=== PATIENT | female | born 1995 | race African-American/Black ===

== ENCOUNTER 2018-10-20 21:32 | Emergency (ER) | payer OTHER ==
[~2018-10-20] VITALS: Ht 170.2 cm; Wt 113.4 kg
--- NOTE | 2018-10-20 22:14 | PHYS DOC ---
Past Medical History Past Medical History: No Pertinent History Past Surgical History: No Surgical History Alcohol Use: None Drug Use: None Adult General Chief Complaint Chief Complaint: HEADACHE HPI HPI Patient is a 23 year old female who presents with went to on 10/16 mean of neck pain and headache and fever and states they gave her a muscle relaxer and some ibuprofen for home. She states on 10/17 she did not feel any better so she returned and was admitted on 10/18 after having a lumbar puncture to assess spinal fluid for meningitis. Patient was admitted and was given IV vancomycin and another antibiotic she can't remember. She states that soon they told her that she did not have meningitis she was discharged home on 10/19 with a continued headache, vomiting. Patient is sensitive to light. States that she sent her home with sumatriptan. Patient states today she is taken the sumatriptan, Excedrin, hydrochlorothiazide, ibuprofen, Tylenol. Patient rates her pain a 10 out of 10 and feels like from the top of the mid of her head to the front of her head is being squeezed. Review of Systems Review of Systems Constitutional: Denies fever or chills [] Eyes: Denies change in visual acuity, redness, or eye pain. Photophobia. [] HENT: Denies nasal congestion or sore throat [] Respiratory: Denies cough or shortness of breath [] Cardiovascular: No additional information not addressed in HPI [] GI: Denies abdominal pain. nausea, vomiting, denies bloody stools or diarrhea [] : Denies dysuria or hematuria [] Musculoskeletal: Slight neck stiffness. Denies back pain or joint pain [] Integument: Denies rash or skin lesions [] Neurologic: headache, denies focal weakness or sensory changes [] All other systems were reviewed and found to be within normal limits, except as documented in this note. Current Medications Current Medications Current Medications Medications (Trade) Dose Ordered Sig/Adwoa Start Time Stop Time Status Last Admin Dose Admin Diphenhydramine HCl (Benadryl) 50 mg STK-MED ONCE 10/20/18 22:38 10/20/18 22:40 DC Fentanyl Citrate (Fentanyl 2ml Vial) 50 mcg 1X ONCE 10/20/18 23:30 10/20/18 23:31 DC 10/20/18 23:53 50 MCG Methylprednisolone Sodium Succinate (SOLU-Medrol 125MG VIAL) 125 mg 1X ONCE 10/21/18 03:00 10/21/18 03:01 DC 10/21/18 03:00 125 MG Prochlorperazine Edisylate (Compazine) 10 mg 1X ONCE 10/20/18 22:30 10/20/18 22:31 DC 10/20/18 22:47 10 MG Sodium Chloride 1,000 ml @ 1,000 mls/hr 1X ONCE 10/20/18 22:30 10/20/18 23:29 DC 10/20/18 23:08 1,000 MLS/HR Allergies Allergies Allergies Coded Allergies Type Severity Reaction Last Updated Verified No Known Drug Allergies 08/09/14 No Physical Exam Physical Exam Constitutional: Well developed, well nourished, no acute distress, non-toxic appearance. [] HENT: Normocephalic, atraumatic, bilateral external ears normal, oropharynx moist, no oral exudates, nose normal. [] Eyes: Photophobia. PERRLA, EOMI, conjunctiva normal, no discharge. [] Neck: Slightly abnormal range of motion, no tenderness, supple, no stridor. [] Cardiovascular:Heart rate regular rhythm, no murmur [] Lungs & Thorax: Bilateral breath sounds clear to auscultation [] Abdomen: Bowel sounds normal, soft, no tenderness, no masses, no pulsatile masses. [] Skin: Warm, dry, no erythema, no rash. [] Back: No tenderness, no CVA tenderness. [] Extremities: No tenderness, no cyanosis, no clubbing, ROM intact, no edema. [] Neurologic: Alert and oriented X 3, normal motor function, normal sensory function, no focal deficits noted. [] Psychologic: Affect normal, judgement normal, mood normal. [] Current Patient Data Vital Signs Vital Signs Date Time Temp Pulse Resp B/P (MAP) Pulse Ox O2 Delivery O2 Flow Rate FiO2 10/21/18 03:03 100 18 10/21/18 01:30 98 10/20/18 23:53 Room Air 10/20/18 21:45 98.8 173/100 (124) 98.8 Lab Values Laboratory Tests Test 10/20/18 22:35 10/21/18 02:56 White Blood Count 11.2 x10^3/uL (4.0-11.0) H Red Blood Count 4.76 x10^6/uL (3.50-5.40) Hemoglobin 13.8 g/dL (12.0-15.5) Hematocrit 40.7 % (36.0-47.0) Mean Corpuscular Volume 86 fL (79-100) Mean Corpuscular Hemoglobin 29 pg (25-35) Mean Corpuscular Hemoglobin Concent 34 g/dL (31-37) Red Cell Distribution Width 13.9 % (11.5-14.5) Platelet Count 195 x10^3/uL (140-400) Neutrophils (%) (Auto) 23 % (31-73) L Lymphocytes (%) (Auto) 64 % (24-48) H Monocytes (%) (Auto) 10 % (0-9) H Eosinophils (%) (Auto) 2 % (0-3) Basophils (%) (Auto) 1 % (0-3) Neutrophils # (Auto) 2.5 x10^3uL (1.8-7.7) Lymphocytes # (Auto) 7.1 x10^3/uL (1.0-4.8) H Monocytes # (Auto) 1.2 x10^3/uL (0.0-1.1) H Eosinophils # (Auto) 0.2 x10^3/uL (0.0-0.7) Basophils # (Auto) 0.2 x10^3/uL (0.0-0.2) Segmented Neutrophils % 17 % (35-66) L Band Neutrophils % 16 % (0-9) H Lymphocytes % 32 % (24-48) Atypical Lymphocytes % (Manual) 30 % (0-0) H Monocytes % 1 % (0-10) Eosinophils % 3 % (0-5) Basophils % 1 % (0-3) Toxic Vacuolation Present Platelet Estimate Adequate (ADEQUATE) Sodium Level 138 mmol/L (136-145) Potassium Level 4.0 mmol/L (3.5-5.1) Chloride Level 102 mmol/L (98-107) Carbon Dioxide Level 28 mmol/L (21-32) Anion Gap 8 (6-14) Blood Urea Nitrogen 6 mg/dL (7-20) L Creatinine 0.9 mg/dL (0.6-1.0) Estimated GFR (Cockcroft-Gault) 93.1 Glucose Level 113 mg/dL (70-99) H Calcium Level 9.4 mg/dL (8.5-10.1) Heterophil Agglutinins Negative (NEGATIVE) POC Urine HCG, Qualitative Hcg negative (Negative) Laboratory Tests 10/20/18 22:35 Laboratory Tests 10/20/18 22:35 EKG EKG [] Radiology/Procedures Radiology/Procedures [] Course & Med Decision Making Course & Med Decision Making Patient is a 23 year old female who presents with went to on 10/16 mean of neck pain and headache and fever and states they gave her a muscle relaxer and some ibuprofen for home. She states on 10/17 she did not feel any better so she returned and was admitted on 10/18 after having a lumbar puncture to assess spinal fluid for meningitis. Patient was admitted and was given IV vancomycin and another antibiotic she can't remember. She states that soon they told her that she did not have meningitis she was discharged home on 10/19 with a continued headache, vomiting. Patient is sensitive to light. States that she sent her home with sumatriptan. Patient states today she is taken the sumatriptan, Excedrin, hydrochlorothiazide, ibuprofen, Tylenol. Patient rates her pain a 10 out of 10 and feels like from the top of the mid of her head to the front of her head is being squeezed. Alert and oriented. Skin is pink warm and dry. Nontoxic appearing. Mucous membranes are moist. She has no rashes on her body. Patient states that the only time she has left is the headache and the nausea, vomiting, light sensitivity and even sometimes make the pain worse. Denies chest pain, shortness of air, fever, numbness or tingling. She is no extremity swelling. Afebrile. Patient states that she is able to move her neck with little pain. Patient does seem to have some neck stiffness as patient will at times move her whole body instead of turning her neck. There is no focal tenderness. Ambulatory with steady gait. Patient is given IV fluids, Compazine, Benadryl. We have sent for records from . I have consult with Dr. De Souza on this patient. 0390: Patient states the medications given have not helped her headache. She states her headache is still out of 10. She states that she is no longer nausea needed. Patient is still alert and oriented and is lying in bed with lights off. 2306: I have handed this patient over to Dr. De Souza. nevaeh: Received signout on this patient and went to check on her again 2 times in the emergency room once at 1 AM and once again at around 3 AM. Patient states that finally the fentanyl that was given did help her headache. It took us several hours but we finally did get the records from there is 50 pages of records in summary patient had a non-con head CT that was negative he tried an LP in the emergency room that was unsuccessful IR did do a lumbar puncture under fluoroscopy scopic guidance she did have elevated LFTs but her abdominal ultrasound was negative acute in the emergency room. Patient had a normal white blood cell count and negative urinalysis Tylenol level was less than 10 patient received ceftriaxone and acyclovir and Vanco while they were awaiting CSF results. Urine test was negative lactate was 1.0 influenza was negative. Notes from [facility] that at one point she told them over there that the only thing that helps her frequent headaches was the oxycodone that she was borrowing from her boyfriend. I reviewed the CSF studies in detail from the [facility] records. Patient had Monospot screen that was negative CSF apparently they only collected two tbues, 3 and 4 had 0 MLS tube to there was 10 white blood cells and 4600 red blood cells in tube 2 (she tells me that she was told it was a traumatic tap,) there was no xanthochromia there was a 57% lymphocyte predominance. The total protein was 43 the total glucose was 60. She had an RVP respiratory virus panel that was negative for all of the common viruses in addition Bordetella pertussis chlamydia pneumonia mycoplasma pneumonia were negative. Again the non-con head CT was negative acute that was done at the outside facility. Patient was ultimately discharged home after having improved symptoms. She does tell me that "I told him I need something besides Tylenol but they weren't listening to me". On reevaluation she says that her headache is actually resolved I reviewed with her the results from and actually talked with her about admitting her overnight elevated white blood cell count were observation and further treatment as indicated. Her CSF cultures so far been negative according to the current note review. She said she can't stay in the hospital she has to go home to be with her family. She did request a prescription for oxycodone so I did give her a small number of those and I did review with her that she very well may get a rebound headache and that this is only for short-term use. She understands. i asked her to come back for recurrent h/a or fever Doug Disclaimer Doug Disclaimer This electronic medical record was generated, in whole or in part, using a voice recognition dictation system. Departure Departure Impression: Primary Impression: Headache Disposition: 01 HOME, SELF-CARE Condition: STABLE Referrals: UNKNOWN PCP NAME (PCP) Scripts Oxycodone/Apap 5-325 (PERCOCET 5-325 MG TABLET ) 1 Each Tablet 1-2 EACH PO PRN TID PRN for PAIN, #10 TAB pain Prov: ERIK DE SOUZA MD 10/21/18 UZAIR FRANKLIN APRN Oct 20, 2018 22:14 ERIK DE SOUZA MD Oct 21, 2018 04:18
[2018-10-20] MEDS ORDERED: IV NORMAL SALINE 1000ML BAG 1,000 ML IV ONE (22:30)
[2018-10-20] MEDS ORDERED: PROCHLORPERAZINE 10 MG/2 ML VIAL. IV ONE (22:30)
[2018-10-20] MEDS ORDERED: diphenhydrAMINE 50 MG/ML VIAL IVP ONE (22:30)
[2018-10-20] MEDS ORDERED: diphenhydrAMINE 50 MG/ML VIAL ONE (22:38)
[2018-10-20 22:43] LABS: BASO # 0.2 x10^3/uL (0.0-0.2); BASO % 1 % (0-3); EOS # 0.2 x10^3/uL (0.0-0.7); EOS % 2 % (0-3); HEMATOCRIT 40.7 % (36.0-47.0); HEMOGLOBIN 13.8 g/dL (12.0-15.5); LYMPH # 7.1 x10^3/uL (1.0-4.8); LYMPH % 64 % (24-48); MEAN CORPUSCULAR HEMOGLOBIN 29 pg (25-35); MEAN CORPUSCULAR HGB CONC 34 g/dL (31-37); MEAN CORPUSCULAR VOLUME 86 fL (79-100); MONO # 1.2 x10^3/uL (0.0-1.1); MONO % 10 % (0-9); NEUT # 2.5 x10^3uL (1.8-7.7); NEUT % 23 % (31-73); PLATELET COUNT 195 x10^3/uL (140-400); RED BLOOD COUNT 4.76 x10^6/uL (3.50-5.40); RED CELL DISTRIBUTION WIDTH 13.9 % (11.5-14.5); WHITE BLOOD COUNT 11.2 x10^3/uL (4.0-11.0)
[2018-10-20 22:50] LABS: CALCIUM 9.4 mg/dL (8.5-10.1); CREATININE 0.9 mg/dL (0.6-1.0); GFR 93.1
[2018-10-20 23:15] LABS: % ATYL 30 % (0-0); % BANDS 16 % (0-9); % BASOS 1 % (0-3); % EOS 3 % (0-5); % LYMPHS 32 % (24-48); % MONOS 1 % (0-10); % SEGS 17 % (35-66)
[2018-10-20 23:16] LABS: PLT ESTIMATE ADEQUATE (ADEQUATE)
[2018-10-20 23:17] LABS: TOXIC VACUOLATION PRESENT
[2018-10-20] MEDS ORDERED: fentaNYL PF VIAL 100 MCG/2 ML VIAL IV ONE (23:30)
[2018-10-21 00:08] LABS: MONONUCLEOSIS PATIENT NEGATIVE (NEGATIVE)
[2018-10-21] MEDS ORDERED: OXYC1TAB15 PO (02:57)
[2018-10-21] MEDS ORDERED: methylPREDNISolone SOD SUCC PF 125 MG/2 ML VIAL. IV ONE (03:00)
[2018-10-21 03:03] VITALS: BP 175/78
== END 2018-10-21 03:30 | disposition home or self-care (01) ==
LOC: ER 21:32
DX: R51 Headache (principal); M54.2 Cervicalgia; R50.9 Fever, unspecified; M43.6 Torticollis
CPT/HCPCS: 36415; 80048; 81025; 85007; 85025; 86308; 96361; 96374; 96375; 99283; J0780; J1200; J2930; J3010; J7030

== ENCOUNTER 2019-09-11 16:33 | Emergency (ER) | payer OTHER ==
[~2019-09-11] VITALS: Ht 170.2 cm; Wt 127.0 kg
[~2019-09-11 16:33] MED LIST: OXYC1TAB15 PO
[2019-09-11] MEDS ORDERED: IV NORMAL SALINE 1000ML BAG 1,000 ML IV ONE (16:45)
[2019-09-11] MEDS ORDERED: diphenhydrAMINE 50 MG/ML VIAL IVP ONE (16:45)
[2019-09-11] MEDS ORDERED: PROCHLORPERAZINE 10 MG/2 ML VIAL. IV ONE (16:45)
--- NOTE | 2019-09-11 16:47 | PHYS DOC ---
Past Medical History Past Medical History: Hypertension Past Surgical History: No Surgical History Alcohol Use: None Drug Use: None Adult General Chief Complaint Chief Complaint: HEADACHE HPI HPI Patient is a 23 year old female who presents with migraine headache. Patient states she began having migraine headaches a year ago in September and she did go see a doctor they put her on medication. She states the medications didn't help. Patient states the headaches are away but yesterday his headache came back. Patient states she has light-sensitive and her frontal lobe is pounding. Patient states she is also nauseated. Patient's also has a history of hypertension and she is hypertensive in the emergency room. Patient states she has not been taking her blood pressure medications as she is supposed to. Patient states she's been under a lot of stress recently. Patient rates her pain a 10 out of 10. Review of Systems Review of Systems GI: Denies abdominal pain, +nausea, denies vomiting, bloody stools or diarrhea [] Neurologic: headache, denies focal weakness or sensory changes [] All other systems were reviewed and found to be within normal limits, except as documented in this note. Current Medications Current Medications Current Medications Medications (Trade) Dose Ordered Sig/Adwoa Start Time Stop Time Status Last Admin Dose Admin Diphenhydramine HCl (Benadryl) 25 mg 1X ONCE 09/11/19 16:45 09/11/19 16:46 DC 09/11/19 16:59 25 MG Prochlorperazine Edisylate (Compazine) 10 mg 1X ONCE 09/11/19 16:45 09/11/19 16:46 DC 09/11/19 17:01 10 MG Sodium Chloride 1,000 ml @ 1,000 mls/hr 1X ONCE 09/11/19 16:45 09/11/19 17:44 DC 09/11/19 16:57 1,000 MLS/HR Allergies Allergies Allergies Coded Allergies Type Severity Reaction Last Updated Verified No Known Drug Allergies 08/09/14 No Physical Exam Physical Exam Constitutional: Well developed, well nourished, no acute distress, non-toxic appearance. [] HENT: Normocephalic, atraumatic, bilateral external ears normal, oropharynx darrell st, no oral exudates, nose normal. [] Eyes: PERRLA, EOMI, conjunctiva normal, no discharge. Photophobia [] Neck: Normal range of motion, no tenderness, supple, no stridor. [] Cardiovascular:Heart rate regular rhythm, no murmur [] Lungs & Thorax: Bilateral breath sounds clear to auscultation [] Abdomen: Bowel sounds normal, soft, no tenderness, no masses, no pulsatile masses. [] Skin: Warm, dry, no erythema, no rash. [] Back: No tenderness, no CVA tenderness. [] Extremities: No tenderness, no cyanosis, no clubbing, ROM intact, no edema. [] Neurologic: Alert and oriented X 3, normal motor function, normal sensory function, no focal deficits noted. [] Psychologic: Affect normal, judgement normal, mood normal. [] Current Patient Data Vital Signs Vital Signs Date Time Temp Pulse Resp B/P (MAP) Pulse Ox O2 Delivery O2 Flow Rate FiO2 09/11/19 17:03 105 16 100 09/11/19 16:35 98.2 184/131 (148) Room Air 98.2 Lab Values Laboratory Tests Test 09/11/19 16:50 09/11/19 17:10 09/11/19 17:12 White Blood Count 10.0 x10^3/uL (4.0-11.0) Red Blood Count 4.43 x10^6/uL (3.50-5.40) Hemoglobin 12.7 g/dL (12.0-15.5) Hematocrit 38.5 % (36.0-47.0) Mean Corpuscular Volume 87 fL (79-100) Mean Corpuscular Hemoglobin 29 pg (25-35) Mean Corpuscular Hemoglobin Concent 33 g/dL (31-37) Red Cell Distribution Width 13.7 % (11.5-14.5) Platelet Count 283 x10^3/uL (140-400) Neutrophils (%) (Auto) 55 % (31-73) Lymphocytes (%) (Auto) 33 % (24-48) Monocytes (%) (Auto) 9 % (0-9) Eosinophils (%) (Auto) 2 % (0-3) Basophils (%) (Auto) 1 % (0-3) Neutrophils # (Auto) 5.5 x10^3/uL (1.8-7.7) Lymphocytes # (Auto) 3.3 x10^3/uL (1.0-4.8) Monocytes # (Auto) 0.9 x10^3/uL (0.0-1.1) Eosinophils # (Auto) 0.2 x10^3/uL (0.0-0.7) Basophils # (Auto) 0.1 x10^3/uL (0.0-0.2) Sodium Level 145 mmol/L (136-145) Potassium Level 3.9 mmol/L (3.5-5.1) Chloride Level 107 mmol/L (98-107) Carbon Dioxide Level 26 mmol/L (21-32) Anion Gap 12 (6-14) Blood Urea Nitrogen 8 mg/dL (7-20) Creatinine 0.8 mg/dL (0.6-1.0) Estimated GFR (Cockcroft-Gault) 106.6 BUN/Creatinine Ratio 10 (6-20) Glucose Level 94 mg/dL (70-99) Calcium Level 8.7 mg/dL (8.5-10.1) Total Bilirubin 0.1 mg/dL (0.2-1.0) L Aspartate Amino Transferase (AST) 16 U/L (15-37) Alanine Aminotransferase (ALT) 17 U/L (14-59) Alkaline Phosphatase 101 U/L (46-116) Troponin I Quantitative < 0.017 ng/mL (0.000-0.055) Total Protein 7.3 g/dL (6.4-8.2) Albumin 3.3 g/dL (3.4-5.0) L Albumin/Globulin Ratio 0.8 (1.0-1.7) L Urine Color Yellow Urine Clarity Clear Urine pH 7.5 Urine Specific Yoder 1.025 Urine Protein Negative mg/dL (NEG-TRACE) Urine Glucose (UA) Negative mg/dL (NEG) Urine Ketones (Stick) Negative mg/dL (NEG) Urine Blood Negative (NEG) Urine Nitrite Negative (NEG) Urine Bilirubin Negative (NEG) Urine Urobilinogen Dipstick 0.2 mg/dL (0.2 mg/dL) Urine Leukocyte Esterase Small (NEG) Urine RBC 0 /HPF (0-2) Urine WBC 11-20 /HPF (0-4) Urine Squamous Epithelial Cells Occ /LPF Urine Bacteria Few /HPF (0-FEW) Urine Mucus Mod /LPF Urine Trichomonas Present Urine Opiates Screen Pos (NEG) Urine Methadone Screen Neg (NEG) Urine Barbiturates Neg (NEG) Urine Phencyclidine Screen Neg (NEG) Urine Amphetamine/Methamphetamine Neg (NEG) Urine Benzodiazepines Screen Pos (NEG) Urine Cocaine Screen Neg (NEG) Urine Cannabinoids Screen Pos (NEG) Urine Ethyl Alcohol Neg (NEG) POC Urine HCG, Qualitative Hcg negative (Negative) Laboratory Tests 09/11/19 16:50 Laboratory Tests 09/11/19 16:50 EKG EKG Sinus Rhythm and no STEMI[] Interpretation Time: [address] Treviño Radiology/Procedures Radiology/Procedures [] Impressions: [facility] [address] [place] [address] IMAGING REPORT Signed PATIENT: JEREMÍAS NYE ACCOUNT: [id number] : 1995 LOCATION: ER AGE: 23 SEX: F EXAM STATUS: REG ER ORD. PHYSICIAN: UZAIR FRANKLIN APRN REASON: headache, htn PROCEDURE: CT HEAD WO CONTRAST STUDY: CT head without contrast INDICATION: Headache. Hypertension. COMPARISON: None. TECHNIQUE: Axial CT imaging through the head without the use of intravenous contrast. Sagittal and coronal reformats were obtained. One or more of the following individualized dose reduction techniques were utilized for this examination: 1. Automated exposure control 2. Adjustment of the mA and/or kV according to patient size 3. Use of iterative reconstruction technique. FINDINGS: Henderson-white matter differentiation is maintained. The sulcation pattern is within normal limits given patient age. No acute intracranial hemorrhage. No mass effect, midline shift or hydrocephalus. The globes are mildly proptotic. Unremarkable scalp soft tissues. The calvarium is intact. Unremarkable partially visualized paranasal sinuses. Normally aerated mastoid air cells. IMPRESSION: No acute intracranial hemorrhage. The CT appearance of the head is within normal limits for the patient's age. Electronically signed by: SHANTE GOLDSTEIN MD (09/11/2019 5:45 PM) [facility] DICTATED and SIGNED BY: SHANTE GOLDSTEIN MD DATE: 09/11/19 3855 Course & Med Decision Making Course & Med Decision Making Patient states this is not the worse headache she's ever had. Patient denies any visual changes although she is photophobic. Alert and oriented. Speaks in full clear sentences. Ambulatory with steady gait. Skin pink warm and dry. Answers all questions appropriately and follows all commands appropriately. Patient states she's been eating and drinking appropriately. PERRLA. Patient denies numbness or tingling, visual changes, chest pain, shortness of air, dizziness, syncope, weakness, visual changes, vomiting, diarrhea, recent illness, neck pain, fever.[ Patient is positive for opiates, benzo's, and marijuana. Patient denies taking any opiates or benzodiazapine. CT head is within normal limits. Blood work is within normal limits. EKG shows sinus rhythm. She has come down to 152/81. Patient states she is feeling a lot better and rates her pain at a 4/10.] Dragon Disclaimer Dragon Disclaimer This electronic medical record was generated, in whole or in part, using a voice recognition dictation system. Departure Departure Impression: Primary Impression: Migraine Disposition: 01 HOME, SELF-CARE Condition: STABLE Referrals: UNKNOWN PCP NAME (PCP) Patient Instructions: Migraine Headache Additional Instructions: Follow-up her primary care provider. Problem Qualifiers Primary Impression: Migraine Migraine type: unspecified Status migrainosus presence: without status migrainosus Intractability: not intractable Qualified Codes: G43.909 - Migraine, unspecified, not intractable, without status migrainosus UZAIR FRANKLIN REPORT SPECIALIST Sep 11, 2019 16:46
[2019-09-11 16:59] LABS: BASO # 0.1 x10^3/uL (0.0-0.2); BASO % 1 % (0-3); EOS # 0.2 x10^3/uL (0.0-0.7); EOS % 2 % (0-3); HEMATOCRIT 38.5 % (36.0-47.0); HEMOGLOBIN 12.7 g/dL (12.0-15.5); LYMPH # 3.3 x10^3/uL (1.0-4.8); LYMPH % 33 % (24-48); MEAN CORPUSCULAR HEMOGLOBIN 29 pg (25-35); MEAN CORPUSCULAR HGB CONC 33 g/dL (31-37); MEAN CORPUSCULAR VOLUME 87 fL (79-100); MONO # 0.9 x10^3/uL (0.0-1.1); MONO % 9 % (0-9); NEUT # 5.5 x10^3/uL (1.8-7.7); NEUT % 55 % (31-73); PLATELET COUNT 283 x10^3/uL (140-400); RED BLOOD COUNT 4.43 x10^6/uL (3.50-5.40); RED CELL DISTRIBUTION WIDTH 13.7 % (11.5-14.5)
[2019-09-11 17:03] VITALS: BP 150/73
[2019-09-11 17:08] LABS: CALCIUM 8.7 mg/dL (8.5-10.1); CREATININE 0.8 mg/dL (0.6-1.0); GFR 106.6; POTASSIUM 3.9 mmol/L (3.5-5.1)
[2019-09-11 17:14] LABS: ALBUMIN 3.3 g/dL (3.4-5.0); ALBUMIN/GLOBULIN RATIO 0.8 (1.0-1.7); TOTAL BILIRUBIN 0.1 mg/dL (0.2-1.0); TOTAL PROTEIN 7.3 g/dL (6.4-8.2)
[2019-09-11 17:21] LABS: BILIRUBIN,URINE NEGATIVE (NEG); CLARITY,URINE CLEAR; COLOR,URINE YELLOW; NITRITE,URINE NEGATIVE (NEG); PH,URINE 7.5; PROTEIN,URINE NEGATIVE (NEG-TRACE); UROBILINOGEN,URINE 0.2 mg/dL (0.2 mg/dL)
[2019-09-11 17:25] LABS: BARBITURATES NEG (NEG); BENZODIAZEPINES POS (NEG); CANNABINOIDS POS (NEG); COCAINE NEG (NEG); METHADONE NEG (NEG); OPIATES POS (NEG); PHENCYCLIDINE NEG (NEG)
[2019-09-11 17:27] LABS: AMPHETAMINE/METHAMPHETAMINE NEG (NEG)
[2019-09-11 17:43] LABS: BACTERIA,URINE FEW /HPF (0-FEW); RBC,URINE 0 /HPF (0-2); SQUAMOUS EPITHELIAL CELL,UR OCC /LPF; TRICHOMONAS,URINE PRESENT
--- NOTE | 2019-09-11 17:47 | RAD ---
STUDY: CT head without contrast INDICATION: Headache. Hypertension. COMPARISON: None. TECHNIQUE: Axial CT imaging through the head without the use of intravenous contrast. Sagittal and coronal reformats were obtained. One or more of the following individualized dose reduction techniques were utilized for this examination: 1. Automated exposure control 2. Adjustment of the mA and/or kV according to patient size 3. Use of iterative reconstruction technique. FINDINGS: Henderson-white matter differentiation is maintained. The sulcation pattern is within normal limits given patient age. No acute intracranial hemorrhage. No mass effect, midline shift or hydrocephalus. The globes are mildly proptotic. Unremarkable scalp soft tissues. The calvarium is intact. Unremarkable partially visualized paranasal sinuses. Normally aerated mastoid air cells. IMPRESSION: No acute intracranial hemorrhage. The CT appearance of the head is within normal limits for the patient's age. Electronically signed by: SHANTE GOLDSTEIN MD (09/11/2019 5:45 PM) [id number]
--- NOTE | 2019-09-12 07:29 | EKG ---
[facility] [address] [place] [address] Test Date: 2019-09-11 Test Time: 16:53:21 Pat Name: JEREMÍAS NYE Department: Room: Gender: F Associate Material Handler: : 1995 Requested By: UZAIR FRANKLIN Order Number: [id number] Reading MD: Measurements Intervals [place] Rate: 96 P: 139 [place]: 176 QRS: 158 QRSD: 70 T: 178 QT: 338 QTc: 428 Interpretive Statements SINUS RHYTHM * POSSIBLE REVERSAL OF THE ARM LEADS ABNORMAL RIGHT AXIS DEVIATION QRS(T) CONTOUR ABNORMALITY CONSISTENT WITH HIGH LATERAL MYOCARDIAL DAMAGE CONSIDER INFERIOR MYOCARDIAL DAMAGE ABNORMAL ECG RI6.01 No previous ECG available for comparison
== END 2019-09-11 18:30 | disposition home or self-care (01) ==
LOC: ER 16:33
DX: G43.909 Migraine, unspecified, not intractable, without status migrainosus (principal); R11.0 Nausea; I10 Essential (primary) hypertension
CPT/HCPCS: 36415; 70450; 80053; 80307; 81001; 81025; 84484; 85025; 87086; 93005; 96374; 96375; 99285; J0780; J1200; J7030